=== PATIENT | female | born 1970 | race Caucasian/White ===

== ENCOUNTER 2018-05-22 21:05 | Inpatient (IN) ==
[2018-05-22 22:44] LABS: Bacteria,Urine Rare /hpf; Bilirubin,Urine Negative (Negative); Clarity,Urine Hazy (Clear); Color,Urine Amber (Yellw/Straw); Glucose,Urine (UA) Negative (Negative); Hyaline Casts,Urine 1 /lpf (0-3); Leukocyte Esterase,Urine Negative (Negative); Mucus,Urine Few /lpf (Occasional); Nitrite,Urine Positive (Negative); Specific Gravity,Urine 1.018 (1.002-1.035); Squamous Epithelial Cell,Urine 11 /hpf (0-5); Transitional Epi Cells,Urine <1 /hpf; Trichomonas,Urine Occasional /hpf; Urobilinogen,Urine 4 or Greater mg/dL (Less than 2)
[2018-05-22] MEDS ORDERED: Pantoprazole Inj 40 MG Vial IV.PUSH ONE (23:17)
[2018-05-22] MEDS ORDERED: Famotidine PF Inj 20 MG/2 ML Vial IV.PUSH ONE (23:18)
[2018-05-22] MEDS ORDERED: Sod Chloride 0.9% Inj 1,000 ML IV.SIG ONE (23:18)
[2018-05-22] MEDS ORDERED: Piperacil/Tazo 3.375 GM Premix 50 ML IV.SIG ONE (23:24)
--- NOTE | 2018-05-22 23:29 | ED ---
HPI General Chief complaint: Urogenital-Female Stated complaint: kidney infection Time Seen by Provider: 05/22/18 21:52 History of Present Illness HPI Narrative: Patient is a 48-year-old female who was in [facility] for a UTI apparently she was admitted because she had a bacteria that was resistant and pain epigastric as well as right upper quadrant right flank pain. Apparently she was inpatient for day when they switched her antibiotics when the culture came back showing a resistant bacteria that was only sensitive to Zosyn as per sister. Patient now is got chills epigastric pain upper right quadrant pain as well as flank pain on the right still having mild suprapubic pain and dysuria she left [facility] AMA because she was not happy and felt she was not getting the care that she wanted. They report that she had a CT done there as well as a CT of her head because she had headache as well as abdomen pain and patient reports they did not find anything specific she said they did not find stones that it did not find pancreatitis or gallstones to explain her pain at this time patient Related Data Previous Rx's Medication Instructions Recorded amlodipine [Norvasc] 10 mg PO DAILY #30 tab 05/24/18 ciprofloxacin HCl 500 mg PO Q12HR #14 tab 05/24/18 hydrochlorothiazide 25 mg PO DAILY #30 tab 05/24/18 Allergies Allergy/AdvReac Type Severity Reaction Status Date / Time morphine Allergy Rash Verified 05/22/18 21:24 Review of Systems ROS: all other systems reviewed are negative [facility] Medical History Medical History Patient denies medical problems (Acute) Social History Social History Second Hand Smoke Exposure: Yes Smoking Status: Light tobacco smoker Tobacco Type: Cigarettes How Often Do You Have a Drink Containing Alcohol: Monthly or less Recent Travel in [facility] within the Last 8 Weeks: No Recent Out of Country Travel within the Last 8 Weeks: No Immunization History Tetanus Immunization: Unsure Exam Narrative Exam Narrative: GENERAL: tactile warm SKIN: Warm and dry. HEAD: Atraumatic. Normocephalic. EYES: Pupils equal and round. No scleral icterus. No injection or drainage. ENT: No nasal bleeding or discharge. Mucous membranes pink and moist. NECK: Trachea midline. No JVD. CARDIOVASCULAR: Regular rate and rhythm. RESPIRATORY: No accessory muscle use. Clear to auscultation. Breath sounds equal bilaterally. GASTROINTESTINAL: Abdomen RUQ pain right flank pain . MUSCULOSKELETAL: Extremities without clubbing, cyanosis, or edema. No obvious deformities. NEUROLOGICAL: Awake and alert. No obvious cranial nerve deficits. Motor grossly within normal limits. Five out of 5 muscle strength in the arms and legs. Normal speech. PSYCHIATRIC: Appropriate mood and affect; insight and judgment normal. Course Initial Documented Vital Signs Temperature 98.1 F 05/22/18 21:20 Pulse Rate 132 H 05/22/18 21:20 Respiratory Rate 18 05/22/18 21:20 Blood Pressure 190/113 H 05/22/18 21:20 Pulse Oximetry 97 05/22/18 21:20 Last Documented Vital Signs Temperature 97.9 F 05/24/18 08:00 Pulse Rate 93 H 05/24/18 08:00 Respiratory Rate 18 05/24/18 08:00 Blood Pressure 158/95 H 05/24/18 08:00 Pulse Oximetry 94 L 05/24/18 08:00 Medical Decision Making [facility] Narrative Medical decision making narrative: Med records from sent CT there showed what appeared as severe pyelonephritis IV zosyn and admit to Med surg URO and nephro consults continue Zosyn and pain management , Medical Screen Exam Complete: Yes Emergency Medical Condition: Yes Differential Diagnosis Differential Diagnosis: UTI vs pyelonephritis vs renal stone with obstruction , vs renal infarct vs GB disease other Lab Data Result diagrams: 05/23/18 05:38 05/23/18 05:38 Lab Results 05/22/18 05/22/18 05/22/18 Range/Units 21:35 23:20 23:20 WBC 10.0 (4.0-11.0) th/mm3 RBC 4.51 (4.00-5.30) mil/mm3 Hgb 11.9 (11.6-15.3) gm/dL Hct 36.9 (35.0-46.0) % MCV 81.8 (80.0-100.0) fL MCH 26.3 L (27.0-34.0) pg MCHC 32.1 (32.0-36.0) % RDW 15.5 (11.6-17.2) % Plt Count 248 (150-450) th/mm3 MPV 9.7 (7.0-11.0) fL Neut % (Auto) 65.2 (16.0-70.0) % Lymph % (Auto) 22.0 (9.0-44.0) % [place] % (Auto) 9.9 H (0.0-8.0) % Eos % (Auto) 2.2 (0.0-4.0) % Baso % (Auto) 0.7 (0.0-2.0) % Neut # (Auto) 6.5 (1.8-7.7) th/mm3 Lymph # (Auto) 2.2 (1.0-4.8) th/mm3 [place] # (Auto) 1.0 H (0.0-0.9) th/mm3 Eos # (Auto) 0.2 (0.0-0.4) th/mm3 Baso # (Auto) 0.1 (0.0-0.2) th/mm3 WBC Differential . Differential Comment Auto diff final Sodium 136 (136-145) meq/L Potassium 3.9 (3.5-5.1) meq/L Chloride 109 H (98-107) meq/L Carbon Dioxide 21.9 (21.0-32.0) meq/L Anion Gap 5 (5-15) meq/L BUN 10 (7-18) mg/dL Creatinine 1.09 H (0.50-1.00) mg/dL Estimated GFR 54 L (>89) mL/min Random Glucose 90 (74-106) mg/dL Calcium 8.5 (8.5-10.1) mg/dL Total Bilirubin 0.4 (0.2-1.0) mg/dL AST 64 H (15-37) U/L ALT 47 (10-53) U/L Alkaline Phosphatase 172 H (45-117) U/L Total Protein 6.6 (6.4-8.2) g/dL Albumin 2.5 L (3.4-5.0) g/dL Lipase 49 L (73-393) U/L Urine Color Francesca (Yellw/Straw) Urine Clarity Hazy H (Clear) Urine pH 5.0 (5.0-8.5) Ur Specific [place] 1.018 (1.002-1.035) Urine Protein 100 H (Neg-Trace) mg/dL Urine Glucose (UA) Negative (Negative) mg/dL Urine Ketones Negative (Negative) mg/dL Urine Occult Blood Small H (Negative) Urine Nitrate Positive H (Negative) Urine Bilirubin Negative (Negative) Urine Urobilinogen 4 or greater (Less than 2) mg/dL Ur Leukocyte Esterase Negative (Negative) Urine RBC 15 H (0-3) /hpf Urine WBC 50 H (0-5) /hpf Ur Squamous Epith Cells 11 (0-5) /hpf Ur Transition Epith Cell <1 (None) /hpf Urine Bacteria Rare H (None) /hpf Hyaline Casts 1 (0-3) /lpf Urine Mucus Few H (Occasional) /lpf Urine Trichomonas Occasional H (None) /hpf Ur Microscopic Review Not Reportable 05/23/18 05/23/18 Range/Units 05:38 05:38 WBC 8.4 (4.0-11.0) th/mm3 RBC 4.23 (4.00-5.30) mil/mm3 Hgb 11.2 L (11.6-15.3) gm/dL Hct 34.8 L (35.0-46.0) % MCV 82.3 (80.0-100.0) fL MCH 26.6 L (27.0-34.0) pg MCHC 32.3 (32.0-36.0) % RDW 15.4 (11.6-17.2) % Plt Count 242 (150-450) th/mm3 MPV 9.2 (7.0-11.0) fL Neut % (Auto) 53.6 (16.0-70.0) % Lymph % (Auto) 31.4 (9.0-44.0) % [place] % (Auto) 11.0 H (0.0-8.0) % Eos % (Auto) 3.0 (0.0-4.0) % Baso % (Auto) 1.0 (0.0-2.0) % Neut # (Auto) 4.5 (1.8-7.7) th/mm3 Lymph # (Auto) 2.6 (1.0-4.8) th/mm3 [place] # (Auto) 0.9 (0.0-0.9) th/mm3 Eos # (Auto) 0.3 (0.0-0.4) th/mm3 Baso # (Auto) 0.1 (0.0-0.2) th/mm3 WBC Differential . Differential Comment Auto diff final Sodium 140 (136-145) meq/L Potassium 3.8 (3.5-5.1) meq/L Chloride 110 H (98-107) meq/L Carbon Dioxide 19.9 L (21.0-32.0) meq/L Anion Gap 10 (5-15) meq/L BUN 10 (7-18) mg/dL Creatinine 0.97 (0.50-1.00) mg/dL Estimated GFR 62 L (>89) mL/min Random Glucose 86 (74-106) mg/dL Calcium 8.4 L (8.5-10.1) mg/dL Total Bilirubin 0.4 (0.2-1.0) mg/dL AST 52 H (15-37) U/L ALT 43 (10-53) U/L Alkaline Phosphatase 150 H (45-117) U/L Total Protein 6.2 L (6.4-8.2) g/dL Albumin 2.3 L (3.4-5.0) g/dL Lipase (73-393) U/L Urine Color (Yellw/Straw) Urine Clarity (Clear) Urine pH (5.0-8.5) Ur Specific [place] (1.002-1.035) Urine Protein (Neg-Trace) mg/dL Urine Glucose (UA) (Negative) mg/dL Urine Ketones (Negative) mg/dL Urine Occult Blood (Negative) Urine Nitrate (Negative) Urine Bilirubin (Negative) Urine Urobilinogen (Less than 2) mg/dL Ur Leukocyte Esterase (Negative) Urine RBC (0-3) /hpf Urine WBC (0-5) /hpf Ur Squamous Epith Cells (0-5) /hpf Ur Transition Epith Cell (None) /hpf Urine Bacteria (None) /hpf Hyaline Casts (0-3) /lpf Urine Mucus (Occasional) /lpf Urine Trichomonas (None) /hpf Ur Microscopic Review Discharge Plan Discharge Disposition Patient Disposition: 01 Discharge Home Discharge Condition Condition: Good Discharge Order Discharge Orders: Discharge Order (Routine); Ordered 05/24/18 Ordered By: Rosio Valdes Discharge Details Anticipated Discharge Date: 05/24/18 Physicians Team ED Provider: Noel Funes Primary Care Provider: Primary Care Ritika Bowser Attending Provider: Rosio Valdes Status ED Status: Left Department Discharge Information Discharge Date/Time: 05/23/18 06:35
[2018-05-22 23:40] LABS: Baso # (Auto) 0.1 th/mm3 (0.0-0.2); Baso % (Auto) 0.7 % (0.0-2.0); Eos # (Auto) 0.2 th/mm3 (0.0-0.4); Eos % (Auto) 2.2 % (0.0-4.0); Hematocrit 36.9 % (35.0-46.0); Hemoglobin 11.9 gm/dL (11.6-15.3); Lymph # (Auto) 2.2 th/mm3 (1.0-4.8); Mean Corpuscular HGB Conc 32.1 % (32.0-36.0); Mean Corpuscular Hemoglobin 26.3 pg (27.0-34.0); Mean Corpuscular Volume 81.8 fL (80.0-100.0); Mean Platelet Volume 9.7 fL (7.0-11.0); Mono % (Auto) 9.9 % (0.0-8.0); Neut # (Auto) 6.5 th/mm3 (1.8-7.7); Neut % (Auto) 65.2 % (16.0-70.0); Platelet Count 248 th/mm3 (150-450); Red Blood Count 4.51 mil/mm3 (4.00-5.30); Red Cell Distribution Width 15.5 % (11.6-17.2)
[2018-05-22 23:57] LABS: Alkaline Phosphatase 172 U/L (45-117); Total Protein 6.6 g/dL (6.4-8.2)
[2018-05-23 00:01] LABS: Alanine Aminotransferase 47 U/L (10-53); Albumin 2.5 g/dL (3.4-5.0); Anion Gap 5 meq/L (5-15); Aspartate Aminotransferase 64 U/L (15-37); Blood Urea Nitrogen 10 mg/dL (7-18); Calcium 8.5 mg/dL (8.5-10.1); Carbon Dioxide 21.9 meq/L (21.0-32.0); Chloride 109 meq/L (98-107); Glomerular Filtration Rate 54 mL/min (>89); Glucose,Random 90 mg/dL (74-106); Lipase 49 U/L (73-393); Potassium 3.9 meq/L (3.5-5.1); Sodium 136 meq/L (136-145)
[2018-05-23] MEDS ORDERED: Ketorolac Inj 30 MG/ML (IVP) Vial IV.PUSH ONE (01:39)
[2018-05-23] MEDS ORDERED: Bisacodyl 10 MG Supp RECTAL PRN (03:47)
[2018-05-23] MEDS ORDERED: Acetaminophen 325 MG Tablet PO PRN (03:47)
[2018-05-23] MEDS ORDERED: HYDROmorphone PF Inj 2 MG/ML Vial IV.PUSH PRN (03:48)
[2018-05-23] MEDS ORDERED: Sod Chloride 0.9% Inj 1,000 ML IV.CONT SCH (04:00)
--- NOTE | 2018-05-23 04:27 | P.HPIM ---
History of Present Illness Primary Care Physician: No Primary Care Physician History of Present Illness: This is a 48-year-old female with no significant PMH who presented to ER with complaints of right flank pain and UTI. Recent admit to [facility] on 05/20/18 for Sepsis/UTI, CT Abd/Pelvis w/ pyelonephritis, was on Rocephin IV, however states she LEFT AMA because she wasn't getting any better. Reports ongoing right flank pain and subjective fever/chills. Pain is severe, 10/10, constant, non-radiating. On arrival, BP 190/113, HR 132, O2 sat 97% on RA, Afebrile. CBC unremarkable. Chemistry essentially unremarkable except for creatinine 1.09. UA positive for UTI. Records from in chart. - Diagnosis (1) UTI (urinary tract infection) (2) Pyelonephritis (3) Intractable pain Review of Systems PAST FAMILY HISTORY: Reviewed. No h/o DM or CAD All other systems reviewed negative except as stated in HPI [facility] - History History Provided By: Patient - Medical History Medical History: Medical History (Last Updated 05/22/18 @ 21:23 by Aleksandr Guerrero) Patient denies medical problems - Tobacco History Second Hand Smoke Exposure: Yes Tobacco Use In Past 30 Days: Yes Smoking Status: Current some day smoker Tobacco Type: Cigarettes - Alcohol History How Often Do You Have a Drink Containing Alcohol: Monthly or less - Travel History Recent Travel in the [place] Within the Last 8 Weeks: No Recent Travel Out of the Country Within the Last 8 Weeks: No - Immunization History Tetanus Immunization: Unsure Medications and Allergies Active Medications: Active Medications Acetaminophen (Tylenol) 650 mg PO Q4H PRN PRN Reason: Temp > 100.4 Al Hydroxide/Mg Hydroxide (Milk Of Neeraj Liq) 30 ml PO Q12H PRN PRN Reason: Mild Constipation Bisacodyl (Dulcolax Supp) 10 mg RECTAL DAILY PRN PRN Reason: SEVERE CONSITIPATION Hydromorphone HCl (Dilaudid Pf Inj) 0.5 mg IV.PUSH Q4H PRN PRN Reason: PAIN 6-10 Sodium Chloride (Ns Inj) 1,000 mls @ 100 mls/hr IV.CONT .Q10H RANJEET Piperacillin/Tazobactam/Dextrose (Zosyn 4.5 Gm Premix) 4.5 gm in 100 mls @ 200 mls/hr IV.SIG Q6H RANJEET Lactulose (Lactulose Liq) 30 ml PO DAILY PRN PRN Reason: SEVERE CONSITIPATION Ondansetron HCl (Zofran Inj) 4 mg IV.PUSH Q6H PRN PRN Reason: NAUSEA OR VOMITING Senna/Docusate Sodium (Gila-Colace) 1 tab PO BID RANJEET Sennosides (Senokot) 17.2 mg PO Q12H PRN PRN Reason: Moderate Constipation Allergies Allergy/AdvReac Type Severity Reaction Status Date / Time morphine Allergy Rash Verified 05/22/18 21:24 Home Medications Medication Instructions Recorded Confirmed Type No Known Home Medications 05/22/18 05/22/18 History Exam Vital signs: Vital Signs 05/22/18 21:20 Temperature 98.1 F Pulse Rate 132 H Respiratory Rate 18 Blood Pressure 190/113 H Pulse Oximetry 97 Intake & Output 05/22/18 05/22/18 05/23/18 06:59 18:59 06:59 Intake Total 1050 / 1050 Balance 1050 / 1050 Weight 68.946 kg Intake: IV 1050 / 1050 Zosyn 3.375 GM Premix 50 ML @ 50 / 50 100 mls/hr IV.SIG ONCE ONE Rx#: [id number] NS Inj 1,000 ML @ Wide Open IV. 1000 / 1000 SIG BOLUS ONE Rx#:[id number] Narrative: PE: GENERAL: Middle-aged white female in no acute distress. SKIN: Focused skin assessment warm and dry. HEENT: PERRLA, EOMI. No scleral icterus or conjunctival pallor. No lid lag or facial droop. CARDIOVASCULAR: Regular rate and rhythm. No obvious murmurs to auscultation. No chest tenderness to palpation. RESPIRATORY: No obvious rhonchi or wheezing. Clear to auscultation. Breath sounds equal bilaterally. GASTROINTESTINAL: Abdomen soft, right flank tenderness to palpation, nondistended. BS normal. MUSCULOSKELETAL: Extremities without clubbing, cyanosis, or edema. No obvious deformities. NEUROLOGICAL: Awake, alert and oriented x4. No focal neurologic deficits. Moving both upper and lower extremities spontaneously. PSYCHIATRIC: Appropriate mood and affect. Insight and judgment normal. Results - Labs CBC & Chem 7: 05/22/18 23:20 05/22/18 23:20 Labs: Short CBC 05/22/18 Range/Units 23:20 WBC 10.0 (4.0-11.0) th/mm3 Hgb 11.9 (11.6-15.3) gm/dL Hct 36.9 (35.0-46.0) % Plt Count 248 (150-450) th/mm3 BMP 05/22/18 23:20 Sodium 136 Potassium 3.9 Chloride 109 H Carbon Dioxide 21.9 BUN 10 Creatinine 1.09 H Calcium 8.5 Liver Function 05/22/18 Range/Units 23:20 Total Bilirubin 0.4 (0.2-1.0) mg/dL AST 64 H (15-37) U/L ALT 47 (10-53) U/L Alkaline Phosphatase 172 H (45-117) U/L Albumin 2.5 L (3.4-5.0) g/dL Urine 05/22/18 Range/Units 21:35 Urine Color Francesca (Yellw/Straw) Urine Clarity Hazy H (Clear) Urine pH 5.0 (5.0-8.5) Ur Specific [place] 1.018 (1.002-1.035) Urine Protein 100 H (Neg-Trace) mg/dL Urine Glucose (UA) Negative (Negative) mg/dL Caprini VTE Risk Assessment Caprini VTE Risk Assessment: No/Low Risk (score <= 1) Caprini Risk Assessment Model: Point Value = 1 Point Value = 2 Point Value = 3 Point Value = 5 Age 41-60 Minor surgery BMI > 25 kg/m2 Swollen legs Varicose veins or History of unexplained or recurrent spontaneous Oral contraceptives or hormone replacement Sepsis (< 1 month) Serious lung disease, including pneumonia (< 1 month) Abnormal pulmonary function Acute myocardial infarction Congestive heart failure (< 1 month) History of inflammatory bowel disease Medical patient at bed rest Age 61-74 Arthroscopic surgery Major open surgery (> 45 min) Laparoscopic surgery (> 45 min) Malignancy Confined to bed (> 72 hours) Immobilizing plaster cast Central venous access Age >= 75 History of VTE Family history of VTE Factor V Leiden Prothrombin [id number] Lupus anticoagulant Anticardiolipin antibodies Elevated serum homocysteine Heparin-induced thrombocytopenia Other congenital or acquired thrombophilia Stroke (< 1 month) Elective arthroplasty Hip, pelvis, or leg fracture Acute spinal cord injury (< 1 month) Prophylaxis Regimen: Total Risk Factor Score Risk Level Prophylaxis Regimen 0-1 Low Early ambulation 2 Moderate Order ONE of the following: *Sequential Compression Device (SCD) *Heparin 5000 units SQ BID 3-4 Higher Order ONE of the following medications: *Heparin 5000 units SQ TID *Enoxaparin/Lovenox 40 mg SQ daily (WT < 150 kg, CrCl > 30 mL/min) *Enoxaparin/Lovenox 30 mg SQ daily (WT < 150 kg, CrCl > 10-29 mL/min) *Enoxaparin/Lovenox 30 mg SQ BID (WT < 150 kg, CrCl > 30 mL/min) AND/OR *Sequential Compression Device (SCD) 5 or more Highest Order ONE of the following medications: *Heparin 5000 units SQ TID (Preferred with Epidurals) *Enoxaparin/Lovenox 40 mg SQ daily (WT < 150 kg, CrCl > 30 mL/min) *Enoxaparin/Lovenox 30 mg SQ daily (WT < 150 kg, CrCl > 10-29 mL/min) *Enoxaparin/Lovenox 30 mg SQ BID (WT < 150 kg, CrCl > 30 mL/min) AND *Sequential Compression Device (SCD) Assessment and Plan - Assessment (1) UTI (urinary tract infection) Code(s): N39.0 - Urinary tract infection, site not specified Status: Acute (2) Pyelonephritis Code(s): N12 - Tubulo-interstitial nephritis, not specified as acute or chronic Status: Acute (3) Intractable pain Code(s): R52 - Pain, unspecified Status: Acute - Plan A/P: 1. UTI: w/ Pyelonephritis, recent admit to [facility] 05/20/18 for Sepsis/UTI, CT Abd/Pelvis w/ pyelonephritis, on Rocephin however LEFT AMA, U/a w/ persistent UTI. Afebrile, no leukocytosis. Continue IV Zosyn, IVF for hydration, monitor I/O, repeat labs in am. 2. Intractable Pain: secondary to above, continue analgesics/antiemetics 3. DVT Prophylaxis: SCD/Teds 4. Social work for d/c planning as needed 5. Case discussed w/ ER physician at length, labs/records/imaging reviewed by me.
[2018-05-23 06:12] LABS: Baso # (Auto) 0.1 th/mm3 (0.0-0.2); Eos # (Auto) 0.3 th/mm3 (0.0-0.4); Hematocrit 34.8 % (35.0-46.0); Hemoglobin 11.2 gm/dL (11.6-15.3); Lymph # (Auto) 2.6 th/mm3 (1.0-4.8); Lymph % (Auto) 31.4 % (9.0-44.0); Mean Corpuscular HGB Conc 32.3 % (32.0-36.0); Mean Corpuscular Hemoglobin 26.6 pg (27.0-34.0); Mean Corpuscular Volume 82.3 fL (80.0-100.0); Mean Platelet Volume 9.2 fL (7.0-11.0); Mono # (Auto) 0.9 th/mm3 (0.0-0.9); Neut # (Auto) 4.5 th/mm3 (1.8-7.7); Neut % (Auto) 53.6 % (16.0-70.0); Platelet Count 242 th/mm3 (150-450); Red Blood Count 4.23 mil/mm3 (4.00-5.30); Red Cell Distribution Width 15.4 % (11.6-17.2); White Blood Count 8.4 th/mm3 (4.0-11.0)
[2018-05-23 06:37] LABS: Albumin 2.3 g/dL (3.4-5.0); Anion Gap 10 meq/L (5-15); Aspartate Aminotransferase 52 U/L (15-37); Blood Urea Nitrogen 10 mg/dL (7-18); Calcium 8.4 mg/dL (8.5-10.1); Carbon Dioxide 19.9 meq/L (21.0-32.0); Chloride 110 meq/L (98-107); Glomerular Filtration Rate 62 mL/min (>89); Glucose,Random 86 mg/dL (74-106); Potassium 3.8 meq/L (3.5-5.1); Sodium 140 meq/L (136-145)
[2018-05-23 06:43] LABS: Alanine Aminotransferase 43 U/L (10-53); Alkaline Phosphatase 150 U/L (45-117); Total Protein 6.2 g/dL (6.4-8.2)
[2018-05-23] MEDS ORDERED: amLODIPine 5 MG Tablet PO SCH (09:45)
[2018-05-23] MEDS: Piperacil/Tazo 4.5 GM Premix 4.5 GM/100 ML BAG IV.SIG SCH ×4 (09:52→23:33)
[2018-05-23] MEDS: Senna/Docusate Sodium 8.6/50 MG Tablet PO SCH ×2 (12:01→20:49)
[2018-05-23] MEDS ORDERED: amLODIPine 5 MG Tablet PO ONE (12:26)
--- NOTE | 2018-05-23 15:16 | P.PNADD ---
Addendum to Inpatient Note Reason for Addendum: Additional Documentation Additional information: The patient says she feels better. She says that she has had hypertension but has never been treated for it. She says her bottom number is always high. The patient was started on amlodipine. She is receiving clonidine as needed. We will continue IV Zosyn. Follow culture data.
[2018-05-24 05:43] VITALS: PULSE 93; RESP 18; O2SAT 94
[2018-05-24] MEDS: Piperacil/Tazo 4.5 GM Premix 4.5 GM/100 ML BAG IV.SIG SCH (06:16)
[2018-05-24] MEDS ORDERED: Ciprofloxacin 500 MG Tablet PO SCH (09:00)
[2018-05-24] MEDS ORDERED: amLODIPine 10 MG Tablet PO SCH (09:00)
[2018-05-24] MEDS ORDERED: hydroCHLOROthiazide 25 MG Tablet PO SCH (09:00)
--- NOTE | 2018-05-24 09:01 | P.PNIM ---
Subjective Interval history: Reports no further pain. No dysuria. Doing well and tolerating diet. Wants to go home. this is the first time she is had a urinary tract infection. She has not had any further fevers or chills. Physical Exam Vital signs: Vital Signs 05/23/18 09:00 05/23/18 09:49 05/23/18 10:00 Temperature Pulse Rate 90 88 Respiratory Rate 16 Blood Pressure Pulse Oximetry 05/23/18 11:00 05/23/18 12:00 05/23/18 13:00 Temperature 98.0 F Pulse Rate 87 90 104 H Respiratory Rate 18 Blood Pressure 173/117 H Pulse Oximetry 95 05/23/18 14:00 05/23/18 15:00 05/23/18 16:00 Temperature 98.2 F Pulse Rate 100 H 87 92 H Respiratory Rate 18 Blood Pressure 145/102 H Pulse Oximetry 96 05/23/18 17:00 05/23/18 18:00 05/23/18 20:00 Temperature 98.1 F Pulse Rate 80 94 H 92 H Respiratory Rate 16 Blood Pressure 149/107 H Pulse Oximetry 98 05/23/18 22:17 05/24/18 00:00 05/24/18 02:45 Temperature 98.1 F 98.3 F Pulse Rate 87 97 H Respiratory Rate 19 19 17 Blood Pressure 156/100 H 177/112 H Pulse Oximetry 95 97 05/24/18 04:00 Temperature 98.2 F Pulse Rate 93 H Respiratory Rate 18 Blood Pressure 170/103 H Pulse Oximetry 94 L Intake & Output 05/23/18 05/24/18 05/24/18 18:59 06:59 18:59 Intake Total 1340 / 1340 300 / 300 Balance 1340 / 1340 300 / 300 Weight 68.946 kg Intake: IV 400 / 400 300 / 300 NS Inj 1,000 ML @ 100 mls/hr IV 200 / 200 .CONT .Q10H RANJEET Rx#:[id number] Zosyn 4.5 GM Premix 4.5 gm In 200 / 200 300 / 300 100 ml @ 200 mls/hr IV.SIG Q6H RANJEET Rx#:[id number] Oral 940 / 940 Other: # Voids 3 6 Date of Last Bowel Movement 05/22/18 Weight On Admission 68.946 kg Narrative: GENERAL: This is a well-nourished, well-developed patient, in no apparent distress. CARDIOVASCULAR: Regular rate and rhythm without murmurs, gallops, or rubs. RESPIRATORY: Clear to auscultation. Breath sounds equal bilaterally. No wheezes , rales, or rhonchi. GASTROINTESTINAL: Abdomen soft, non-tender, nondistended. Normal active bowel sounds MUSCULOSKELETAL: Extremities without clubbing, cyanosis, or edema. NEURO: Alert & Oriented x4 to person, place, time, situation. Moves all ext x4 Results - Labs CBC & Chem 7: 05/23/18 05:38 05/23/18 05:38 Assessment and Plan - Assessment (1) UTI (urinary tract infection) Code(s): N39.0 - Urinary tract infection, site not specified Status: Resolved (2) Pyelonephritis Code(s): N12 - Tubulo-interstitial nephritis, not specified as acute or chronic Status: Resolved (3) Intractable pain Code(s): R52 - Pain, unspecified Status: Resolved - Plan 48-year-old white female with 1. UTI: w/ Pyelonephritis, recent admit to [facility] 05/20/18 for Sepsis/UTI, CT Abd/Pelvis w/ pyelonephritis, on Rocephin however LEFT AMA, U/a w/ persistent UTI. Afebrile, no leukocytosis. Was initially placed on IV Zosyn, IVF for hydration, monitor I/O, Urine culture currently shows no growth. At this time will transition to oral antibiotics Cipro and discharge patient to home with outpatient follow-up. 2. Intractable Pain: secondary to above, since admission this pain has resolved. 3. Uncontrolled hypertensioninitiated Norvasc and HCTZ. 3. DVT Prophylaxis: SCD/Teds Discharge patient to home Condition on discharge: Improved Regular Diet as tolerated Ad Kym activity Rx written: Cipro 500 mg p.o. twice daily for 7 more days Norvasc 10 mg p.o. daily HCTZ 25 mg p.o. daily Follow-up with primary care physician (1) UTI (urinary tract infection) Qualifiers: Urinary tract infection type: acute pyelonephritis Qualified Code(s): N10 - Acute pyelonephritis
[2018-05-24 09:17] VITALS: BP 158/95; TEMP 97.9
[2018-05-24] MEDS: Senna/Docusate Sodium 8.6/50 MG Tablet PO SCH (09:31)
== END 2018-05-24 09:59 | disposition home or self-care (01) ==
LOC: NEPC 21:05 → NEDA 21:05 → HCIN 05-23 06:32 → N06 05-23 21:41
PROVIDERS: ADMIT Family Medicine; ATTEND Family Medicine